=== PATIENT | female | born 1990 | race Caucasian/White ===

== ENCOUNTER 2016-09-18 18:01 | Emergency (ER) | payer OTHER ==
[2016-09-18 18:05] VITALS: BP 140/93; PULSE 88; TEMP 98; BMI 30.1
--- NOTE | 2016-09-18 19:07 | PDOC ---
History of Present Illness - General History Source: Patient Exam Limitations: No Limitations - History of Present Illness Travel History: No Timing/Duration: reports: intermittent Quality: reports: mild Pain Radiation: reports: no radiation Activities at Onset: reports: none Aggravating Factors: improves with: None <Hannah Fischer - Last Filed: 09/18/16 21:34> <Jennifer Huggins - Last Filed: 09/23/16 07:15> - General Chief Complaint: Vaginal Bleeding Stated Complaint: 9WKS/VAGINAL BLEEDING Time Seen by Provider: 09/18/16 19:05 Past History - Travel Traveled outside of the country in the last 30 days: No Close contact w/someone who was outside of country & ill: No - Past Medical History Other medical history: none - Psycho/Social/Smoking Cessation Hx Anxiety: No Suicidal Ideation: No Smoking History: Never smoked Have you smoked in the past 12 months: No Information on smoking cessation initiated: No Hx Alcohol Use: No Drug/Substance Use Hx: No Substance Use Type: None <Hannah Fischer - Last Filed: 09/18/16 21:34> <Jennifer Huggins - Last Filed: 09/23/16 07:15> - Past Medical History Allergies/Adverse Reactions: Allergies Allergy/AdvReac Type Severity Reaction Status Date / Time No Known Allergies Allergy Verified 09/18/16 18:02 Review of Systems - Review of Systems Able to Perform ROS?: Yes Comments:: 09/18/16 19:27 CONSTITUTIONAL: Absent: fever, chills, diaphoresis, generalized weakness, malaise, loss of appetite HEENT: Absent: rhinorrhea, nasal congestion, throat pain, throat swelling, difficulty swallowing, mouth swelling, ear pain, eye pain, visual Changes CARDIOVASCULAR: Absent: chest pain, loss of consciousness, palpitations, irregular heart rate, peripheral edema RESPIRATORY: Absent: cough, shortness of breath, dyspnea with exertion, orthopnea, wheezing, stridor, hemoptysis GASTROINTESTINAL: +Left pelvic pain with vag bleed/tinged brown Absent: abdominal pain, abdominal distension, nausea, vomiting, diarrhea, constipation, melena, hematochezia GENITOURINARY: Absent: dysuria, frequency, urgency, hesitancy, hematuria, flank pain, genital pain MUSCULOSKELETAL: Absent: myalgia, arthralgia, joint swelling SKIN: Absent: rash, itching, pallor HEMATOLOGIC/IMMUNOLOGIC: Absent: easy bleeding, easy bruising, lymphadenopathy, frequent infections ENDOCRINE: Absent: unexplained weight gain, unexplained weight loss, heat intolerance, cold intolerance NEUROLOGIC: Absent: headache, focal weakness or paresthesias, dizziness, unsteady gait, seizure, mental status changes, bladder or bowel incontinence PSYCHIATRIC: Absent: anxiety, depression, suicidal or homicidal ideation, hallucinations. Is the patient limited [place] proficient: No <Hannah Fischer - Last Filed: 09/18/16 21:34> *Physical Exam - Vital Signs Last Vital Signs Temp Pulse Resp BP Pulse Ox 98.0 F 88 18 140/93 100 09/18/16 18:02 09/18/16 18:02 09/18/16 18:02 09/18/16 18:02 09/18/16 18:02 - Physical Exam Comments: 09/18/16 20:12 GENERAL: Well developed, well nourished. Awake and alert. No acute distress. HEENT: Normocephalic, atraumatic. PERRLA, EOMI. No conjunctival pallor. Sclera are non- icteric. Moist mucous membranes. Oropharynx is clear. NECK: Supple. Full ROM. No JVD. Carotid pulses 2+ and symmetric, without bruits. No thyromegaly. No lymphadenopathy. CARDIOVASCULAR: Regular rate and rhythm. No murmurs, rubs, or gallops. Distal pulses are 2+ and symmetric. PULMONARY: No evidence of respiratory distress. Lungs clear to auscultation bilaterally. No wheezing, rales or rhonchi. ABDOMINAL: Soft. Non-tender. Non-distended. No rebound or guarding. No organomegaly. Normoactive bowel sounds. MUSCULOSKELETAL Normal range of motion at all joints. No bony deformities or tenderness. No CVA tenderness. EXTREMITIES: No cyanosis. No clubbing. No edema. No calf tenderness. SKIN: Warm and dry. Normal capillary refill. No rashes. No jaundice. NEUROLOGICAL: Alert, awake, appropriate. Cranial nerves 2-12 intact. No deficits to light touch and temperature in face, upper extremities and lower extremities. No motor deficits in the in face, upper extremities and lower extremities. Normoreflexic in the upper and lower extremities. Normal speech. Toes are down- going bilaterally. Gait is normal without ataxia. PSYCHIATRIC: Cooperative. Good eye contact. Appropriate mood and affect. Pelvic: External genitalia normal without lesions. Vaginal vault is clear without blood or discharge. Cervix is long and closed. No cervical motion tenderness. Uterus is nontender and normal in size. Adnexa are nontender and without masses. This is a 26-year-old female without any past medical history presents to the emergency department complaining of a vaginal brownish discharge 4 days. Patient states it was initially a yellowish discoloration which turned into a tinge brown mucousy substance since yesterday with left lower 2/10 dull nonradiating intermittent pelvic discomfort which has subsided times one hour ago. Patient had called her olericulture teacher at [address] [place] and was informed to come to the emergency department. Patient states she has not yet seen an olericulture teacher for this . Patient denies any nausea/vomiting, fever/ chills, chest pain, shortness of breath, abdominal pains, flank pains, urinary symptoms: Frequency/urgency/burning upon urination or hesitancy. LMP 07/13/2016 Patient was diagnosed with gestational diabetes during her 4-1/2 years ago. Diabetes subsided after her delivery. <Hannah Fischer - Last Filed: 09/18/16 21:34> - Vital Signs Last Vital Signs Temp Pulse Resp BP Pulse Ox 98.0 F 88 18 140/93 100 09/18/16 18:02 09/18/16 18:02 09/18/16 18:02 09/18/16 18:02 09/18/16 18:02 <Jennifer Huggins - Last Filed: 09/23/16 07:15> ED Treatment Course - LABORATORY CBC & Chemistry Diagram: 09/18/16 19:20 <Hannah Fischer - Last Filed: 09/18/16 21:34> - LABORATORY CBC & Chemistry Diagram: 09/18/16 19:20 - ADDITIONAL ORDERS Additional order review: 09/18/16 19:20 RBC 4.71 MCV 81.5 MCHC 33.0 RDW 14.3 MPV 9.7 <Jennifer Huggins - Last Filed: 09/23/16 07:15> Progress Note - Progress Note Progress Note: Ultrasound/transvaginal: Single intrauterine at 9 weeks and 3 days. Cardiac rate is 1 71 bpm. <Hannah Fischer - Last Filed: 09/18/16 21:34> *DC/Admit/Observation/Transfer - Discharge Dispostion Admit: No <Hannah Fischer - Last Filed: 09/18/16 21:34> - Attestations Physician Attestion: I reviewed the case with the mid-level practitioner and agree with the mid- level practitioner's assessment, diagnosis and disposition. <Jennifer Huggins - Last Filed: 09/23/16 07:15> Diagnosis at time of Disposition: Threatened - Discharge Dispostion Disposition: HOME Condition at time of disposition: Improved - Referrals Referrals: Michelle Webber MD [Primary Care Provider] - Edel Díaz MD [Staff Physician] - - Patient Instructions Printed Discharge Instructions: DI for Threatened Additional Instructions: A copy of your preliminary ultrasound report has been given to you which shows that you have a single intrauterine at 9 weeks and 3 days. The cardiac rate is 171 bpm. Follow-up with your olericulture teacher within 24 hours. Return back to the emergency department for severe/persistent or worsening symptoms.
[2016-09-18 19:32] LABS: MCH 26.9 pg (25.7-33.7); MEAN CELL VOLUME 81.5 fl (80-96); MEAN PLT VOLUME 9.7 fl (7.5-11.1); PLATELET COUNT 211 K/MM3 (134-434); RDW 14.3 % (11.6-15.6); WHITE BLOOD COUNT 14.5 K/mm3 (4.0-10.0)
[2016-09-18 19:36] LABS: URINE APPEARANCE CLEAR; URINE BILIRUBIN NEGATIVE (NEGATIVE); URINE BLOOD NEGATIVE (NEGATIVE); URINE COLOR LTYELLOW; URINE GLUCOSE (UA) NEGATIVE (NEGATIVE); URINE KETONE 1+ (NEGATIVE); URINE LEUK ESTERASE NEGATIVE (NEGATIVE); URINE NITRITE NEGATIVE (NEGATIVE); URINE PROTEIN NEGATIVE (NEGATIVE); URINE UROBILINOGEN NEGATIVE E.U./dl (0.2-1.0)
== END 2016-09-18 22:07 | disposition home or self-care (01) ==
LOC: JER 18:01
DX: O20.0 Threatened abortion (principal); Z3A.09 9 weeks gestation of pregnancy
CPT/HCPCS: 36415; 76801-TC; 81003; 84702; 85027; 86850; 86900; 86901; 99282-25

== ENCOUNTER 2016-09-22 19:03 | Emergency (ER) | payer OTHER ==
[2016-09-22 19:18] VITALS: TEMP 98.6; BMI 30.9
--- NOTE | 2016-09-22 20:14 | PDOC ---
History of Present Illness - General Chief Complaint: Vaginal Bleeding Stated Complaint: 10WKS/VAGINAL BLEEDING/BLOOD WORK Time Seen by Provider: 09/22/16 19:44 History Source: Patient Exam Limitations: No Limitations - History of Present Illness Travel History: No Timing/Duration: reports: other (no pain) Past History - Travel Traveled outside of the country in the last 30 days: No Close contact w/someone who was outside of country & ill: No - Past Medical History Allergies/Adverse Reactions: Allergies Allergy/AdvReac Type Severity Reaction Status Date / Time No Known Allergies Allergy Verified 09/22/16 19:13 Home Medications: Ambulatory Orders NK [No Known Home Medication] 09/22/16 - Reproductive History Is Patient Now?: Yes (approx 10 weeks) (#): 1 Para: 4 Therapeutic (s) & number: No Spontaneous : 2 - Immunization History Immunization Up to Date: Yes - Psycho/Social/Smoking Cessation Hx Anxiety: No Suicidal Ideation: No Smoking History: Never smoked Have you smoked in the past 12 months: No Information on smoking cessation initiated: No Hx Alcohol Use: No Drug/Substance Use Hx: No Substance Use Type: None Review of Systems - Review of Systems Able to Perform ROS?: Yes Comments:: 09/22/16 20:18 CONSTITUTIONAL: Absent: fever, chills, diaphoresis, generalized weakness, malaise, loss of appetite HEENT: Absent: rhinorrhea, nasal congestion, throat pain, throat swelling, difficulty swallowing, mouth swelling, ear pain, eye pain, visual Changes CARDIOVASCULAR: Absent: chest pain, loss of consciousness, palpitations, irregular heart rate, peripheral edema RESPIRATORY: Absent: cough, shortness of breath, dyspnea with exertion, orthopnea, wheezing, stridor, hemoptysis GASTROINTESTINAL: Absent: abdominal pain, abdominal distension, nausea, vomiting, diarrhea, constipation, melena, hematochezia +bag brownish d/c x2 yesterday GENITOURINARY: Absent: dysuria, frequency, urgency, hesitancy, hematuria, flank pain, genital pain MUSCULOSKELETAL: Absent: myalgia, arthralgia, joint swelling SKIN: Absent: rash, itching, pallor HEMATOLOGIC/IMMUNOLOGIC: Absent: easy bleeding, easy bruising, lymphadenopathy, frequent infections ENDOCRINE: Absent: unexplained weight gain, unexplained weight loss, heat intolerance, cold intolerance NEUROLOGIC: Absent: headache, focal weakness or paresthesias, dizziness, unsteady gait, seizure, mental status changes, bladder or bowel incontinence PSYCHIATRIC: Absent: anxiety, depression, suicidal or homicidal ideation, hallucinations. Is the patient limited [place]ymra[place] proficient: No *Physical Exam - Vital Signs Last Vital Signs Temp Pulse Resp BP Pulse Ox 98.6 F 95 H 20 116/72 99 09/22/16 19:13 09/22/16 19:13 09/22/16 19:13 09/22/16 19:13 09/22/16 19:13 - Physical Exam Comments: 09/22/16 20:21 GENERAL: Well developed, well nourished. Awake and alert. No acute distress. HEENT: Normocephalic, atraumatic. PERRLA, EOMI. No conjunctival pallor. Sclera are non- icteric. Moist mucous membranes. Oropharynx is clear. NECK: Supple. Full ROM. No JVD. Carotid pulses 2+ and symmetric, without bruits. No thyromegaly. No lymphadenopathy. CARDIOVASCULAR: Regular rate and rhythm. No murmurs, rubs, or gallops. Distal pulses are 2+ and symmetric. PULMONARY: No evidence of respiratory distress. Lungs clear to auscultation bilaterally. No wheezing, rales or rhonchi. ABDOMINAL: Soft. Non-tender. Non-distended. No rebound or guarding. No organomegaly. Normoactive bowel sounds. MUSCULOSKELETAL Normal range of motion at all joints. No bony deformities or tenderness. No CVA tenderness. EXTREMITIES: No cyanosis. No clubbing. No edema. No calf tenderness. SKIN: Warm and dry. Normal capillary refill. No rashes. No jaundice. NEUROLOGICAL: Alert, awake, appropriate. Cranial nerves 2-12 intact. No deficits to light touch and temperature in face, upper extremities and lower extremities. No motor deficits in the in face, upper extremities and lower extremities. Normoreflexic in the upper and lower extremities. Normal speech. Toes are down- going bilaterally. Gait is normal without ataxia. PSYCHIATRIC: Cooperative. Good eye contact. Appropriate mood and affect. Pelvic: External genitalia normal without lesions. Vaginal vault is clear without blood or discharge. Cervix is long and closed. No cervical motion tenderness. Uterus is nontender and normal in size. Adnexa are nontender and without masses. 09/22/16 20:38 ED Treatment Course - LABORATORY CBC & Chemistry Diagram: 09/22/16 20:14 09/22/16 20:14 - RADIOLOGY Radiograph Interpretation: 09/22/16 22:48 Preliminary US transvaginal: Single viable intrauterine gestation at approximately 10 weeks and 1 day. cardiac rate 1 68 bpm. No subchorionic implantation bleed is noted. Progress Note - Progress Note Progress Note: LMP: 07/13/2016 (2 miscarriages: ) Last seen 09/18/2016: TS: A+/ Beta: [id number] 26 F without any past medical history presents to the emergency department complaining of a tinge brown vaginal discharge last evening and once this afternoon. Patient denies any headache, dizziness, lightheadedness, nausea/ vomiting, fever/chills, neck pains, chest pain, shortness of breath, abdominal pains, flank pains, urinary frequency/urgency/hesitancy. Patient was seen in the emergency department 4 days ago for similar symptoms. *DC/Admit/Observation/Transfer Diagnosis at time of Disposition: Threatened - Discharge Dispostion Disposition: HOME Condition at time of disposition: Stable - Referrals Referrals: Dagmar Brink MD [Primary Care Provider] - Michelle Webber MD [Staff Physician] - - Patient Instructions Printed Discharge Instructions: DI for Threatened Additional Instructions: Please follow-up with your controls operator [employer] on Sunday. Today is Sunday evening so be sure to follow up in 2 days. Your preliminary transvaginal ultrasound in the emergency department tonight shows a single viable intrauterine gestation at approximately 10 weeks and 1 day. The heart rate is 168 bpm. You have been given a copy of the preliminary transvaginal ultrasound report. Return back to the emergency department for severe/persistent or worsening symptoms.
[2016-09-22 20:39] LABS: BASOPHIL 0.6 % (0-2.0); EOSINOPHIL 5.6 % (0-4.5); MCH 27.1 pg (25.7-33.7); MCHC 33.2 g/dl (32.0-36.0); MEAN CELL VOLUME 81.6 fl (80-96); MEAN PLT VOLUME 9.8 fl (7.5-11.1); NEUTROPHILS 60.9 % (42.8-82.8); PLATELET COUNT 189 K/MM3 (134-434); RDW 13.8 % (11.6-15.6); WHITE BLOOD COUNT 14.8 K/mm3 (4.0-10.0)
[2016-09-22 20:41] LABS: URINE APPEARANCE CLEAR; URINE BILIRUBIN NEGATIVE (NEGATIVE); URINE COLOR STRAW; URINE GLUCOSE (UA) 2+ (NEGATIVE); URINE KETONE TRACE (NEGATIVE); URINE LEUK ESTERASE NEGATIVE (NEGATIVE); URINE NITRITE NEGATIVE (NEGATIVE); URINE PROTEIN NEGATIVE (NEGATIVE); URINE UROBILINOGEN NEGATIVE E.U./dl (0.2-1.0)
[2016-09-22 20:50] LABS: URINE BLOOD 1+ (NEGATIVE)
[2016-09-22 21:04] LABS: ALBUMIN 3.1 g/dl (3.4-5.0); ANION GAP 10 (8-16); CALCIUM 8.6 mg/dL (8.5-10.1); CO2 23 mmol/L (21-32); CREATININE 0.5 mg/dL (0.55-1.02); GLUCOSE,RANDOM 125 mg/dL (74-106); SGOT/AST 11 U/L (15-37); SGPT/ALT 20 U/L (12-78)
[2016-09-22 21:21] LABS: ALK PHOS 65 U/L (45-117); BILIRUBIN,TOTAL 0.1 mg/dL (0.2-1.0); TOT PROT 7.5 g/dl (6.4-8.2)
[2016-09-22 23:14] VITALS: BP 119/72; PULSE 89
[2016-09-23 01:38] LABS: URINE RBC 1 /hpf (0-3)
== END 2016-09-22 23:13 | disposition home or self-care (01) ==
LOC: JER 19:03
DX: O20.0 Threatened abortion (principal); Z3A.10 10 weeks gestation of pregnancy
CPT/HCPCS: 36415; 76801-TC; 80053; 81003; 81015; 84702; 85025; 86850; 86900; 86901; 87086; 99283-25

== ENCOUNTER 2017-01-01 14:23 | Emergency (ER) | payer OTHER ==
[2017-01-01 14:30] VITALS: BMI 31.8
[2017-01-01 15:45] VITALS: BP 103/67; PULSE 83; TEMP 98.3
== END 2017-01-01 16:14 | disposition home or self-care (01) ==
LOC: JER 14:23
DX: O26.892 Other specified pregnancy related conditions, second trimester (principal); R10.32 Left lower quadrant pain; Z3A.24 24 weeks gestation of pregnancy
CPT/HCPCS: 99281-25

== ENCOUNTER 2023-06-29 20:41 | Emergency (ER) | payer OTHER ==
[2023-06-29 21:29] VITALS: BP 123/87; PULSE 113; RESP 18; TEMP 98.6; BMI 30.9
[2023-06-29] MEDS ORDERED: ACETAMINOPHEN 1000 MG/100 ML BAG IVPB ONE (21:58)
[2023-06-29] MEDS ORDERED: SODIUM CHLORIDE 1,000 ML IV STA (21:58)
[2023-06-29] MEDS ORDERED: ONDANSETRON 4 MG/2 ML VIAL IVPUSH ONE (21:58)
[2023-06-29] MEDS ORDERED: ACETAMINOPHEN INJECTION 100 ML IVPB ONE (21:59)
[2023-06-29] MEDS ORDERED: ONDANSETRON 4 MG/2 ML VIAL ONE (21:59)
[2023-06-29 22:27] LABS: HEMATOCRIT 39.8 % (32.4-45.2); HEMOGLOBIN 13.7 G/dL (10.7-15.3); MCH 27.7 pg (25.7-33.7); MCHC 34.5 g/dl (32.0-36.0); MEAN CELL VOLUME 80.2 fl (80-96); MEAN PLT VOLUME 9.7 fl (7.5-11.1); PLATELET COUNT 190.3 10^3/uL (134-434); RBC 4.96 10^6/uL (3.60-5.2); RDW 14.8 % (11.6-15.6); WHITE BLOOD COUNT 11.7 10^3/uL (4.0-10.8)
[2023-06-29 22:43] LABS: PLATELET ESTIMATE ADEQUATE
[2023-06-29 22:45] LABS: ALBUMIN 4.2 g/dl (3.4-5.0); BILIRUBIN,TOTAL 0.4 mg/dl (0.2-1); CALCIUM 9.3 mg/dl (8.5-10.1); CREATININE 0.7 mg/dl (0.6-1.3); POTASSIUM 4.1 mmol/L (3.5-5.1); TOT PROT 7.4 g/dl (6.4-8.2)
[2023-06-29 23:38] LABS: HCG,QUALITATIVE URINE Negative
[2023-06-29 23:43] LABS: EPITHELIAL CELLS 0-5 /hpf
== END 2023-06-30 00:48 | disposition home or self-care (01) ==
LOC: FER 20:41
PROC: 3E033NZ Introduction of Analgesics, Hypnotics, Sedatives into Peripheral Vein, Percutaneous Approach (ICD-10-PCS; principal; 2023-06-29)
PROC: 3E033GC Introduction of Other Therapeutic Substance into Peripheral Vein, Percutaneous Approach (ICD-10-PCS; 2023-06-29)
PROC: 3E0337Z Introduction of Electrolytic and Water Balance Substance into Peripheral Vein, Percutaneous Approach (ICD-10-PCS; 2023-06-29)
DX: R10.84 Generalized abdominal pain (principal); R11.2 Nausea with vomiting, unspecified; A08.4 Viral intestinal infection, unspecified; R10.13 Epigastric pain; R10.31 Right lower quadrant pain
CPT/HCPCS: 36415; 74177-TC; 80053; 81003; 81015; 81025; 84703; 85027; 96361; 96374; 96375; 99285-25; Q9967